=== PATIENT | female | born 1970 | race Caucasian/White ===

== ENCOUNTER → 2018-08-24 | Outpatient (CLI) | payer OTHER ==
[~2018-08-24] MED LIST: AFRIN 15 ML15 ML NS; ALLEGRA 180MG180 MG PO; CALCIUM CARBONATE; FLONASE NASAL S16 GM NS; MULTIPLE VITAMI1 CAP PO; NO HOME MEDICATIONS; OMEGA-3 FISH1000 MG PO; SYSTANE GEL EYE10 ML OP; TIAZAC120 MG PO; TUMS500 MG PO
== END ==
LOC: COL.PUL 12:58
DX: R06.02 Shortness of breath (principal)
CPT/HCPCS: J7674